=== PATIENT | male | born 1955 | race Caucasian/White ===

== ENCOUNTER → 2017-03-19 | Outpatient (CLI) | payer BC | LOC: COL.RAD 14:38 | DX: Q28.3 Other malformations of cerebral vessels (principal); J32.0 Chronic maxillary sinusitis; J32.2 Chronic ethmoidal sinusitis; I65.21 Occlusion and stenosis of right carotid artery | CPT/HCPCS: A9585 ==

== ENCOUNTER → 2018-06-17 | Outpatient (CLI) | payer MEDICARE, BC | LOC: COL.RAD 08:59 | DX: C61 Malignant neoplasm of prostate (principal) | CPT/HCPCS: A9503 ==

== ENCOUNTER 2018-09-20 08:56 | Day surgery (SDC) | payer MEDICARE, BC ==
[2018-09-20] VITALS (12 sets, daily range): BP systolic 127–154; BP diastolic 91–107; PULSE 69–76; TEMP 97
[~2018-09-20] VITALS: Ht 185.5 cm; Wt 94.0 kg
[2018-09-20 09:41] LABS: HEMATOCRIT 43.3 % (42.0-52.0); MEAN CELL VOLUME 88 fl (80.0-100.0); MEAN CORPUSCULAR HEMOGLOBIN 28 pg (27.0-31.0); MEAN CORPUSCULAR HGB CONC 32 g/dl (33.0-37.0); MEAN PLATELET VOLUME 9.7 fl (7.4-10.4); PLATELET COUNT 274 K/mm3 (130-400); RED BLOOD COUNT 4.95 M/mm3 (4.20-5.60); REDCELL DISTRIBUTION WIDTH-CV 14.1 % (11.5-14.5)
[2018-09-20] MEDS ORDERED: PROTONIX 40MG T40 MG PO (09:45)
[2018-09-20 09:46] LABS: INR 1.3 (0.8-3.0); PROTHROMBIN TIME 14.2 SECONDS (9.7-12.8)
[2018-09-20] MEDS ORDERED: ASPIRIN 81M81 MG/TA2 PO (09:46)
[2018-09-20] MEDS ORDERED: XALATAN EYE DROPS OD (09:46)
[2018-09-20 09:52] LABS: CALCIUM 8.9 mg/dL (8.4-10.2); CREATININE, serum 1.1 mg/dL (0.66-1.25); POTASSIUM 4.5 mmol/L (3.4-5.0)
--- NOTE | 2018-09-20 11:09 | NUR ---
Pt to procedure,report to MARY Keith.
--- NOTE | 2018-09-20 11:14 | NUR ---
ALL MEDICATION GIVEN WITH VERBAL ORDER AND READBACK BY MD. SEE MERGE FOR ALL ADMIN TIMES.
[2018-09-20] MEDS ORDERED: ALDACTONE 25MG25 M1 PO (12:43)
--- NOTE | 2018-09-20 17:43 | NUR ---
Discharge instructions given to pt.Pt verbalizes understanding.INt removed,catheter tip intact.
--- NOTE | 2018-09-20 18:00 | NUR ---
[facility]
== END 2018-09-20 18:48 | disposition home or self-care (01) ==
LOC: COL.CAR 08:56
PROVIDERS: Internal Medicine Cardiovascular Disease
DX: I08.0 Rheumatic disorders of both mitral and aortic valves (principal); I27.20 Pulmonary hypertension, unspecified; I10 Essential (primary) hypertension; I77.810 Thoracic aortic ectasia; R01.1 Cardiac murmur, unspecified; Z79.82 Long term (current) use of aspirin; Z79.899 Other long term (current) drug therapy
CPT/HCPCS: J1644; J2250; J3010; J7060; Q9967

== ENCOUNTER 2018-12-07 17:32 | Emergency (ER) | payer MEDICARE, BC ==
[~2018-12-07] VITALS: Ht 185.4 cm; Wt 81.8 kg
[2018-12-07 17:41] VITALS: TEMP 98.1
[2018-12-07 19:46] VITALS: BP 117/75; PULSE 86
== END 2018-12-07 19:49 | disposition home or self-care (01) ==
LOC: COL.ER 17:32
DX: I50.9 Heart failure, unspecified (principal); Z79.82 Long term (current) use of aspirin
CPT/HCPCS: J1940; Q9967

== ENCOUNTER → 2018-12-07 | Outpatient (CLI) | payer MEDICARE, BC ==
[~2018-12-07] MED LIST: ALDACTONE 25MG25 M1 PO; ASPIRIN 81M81 MG/TA2 PO; ASPIRIN E.C. 8181 MG PO; PROTONIX 40MG T40 MG PO; XALATAN EYE DROPS OD
[2018-12-07 16:32] LABS: BASO # 0.1 (0.0-0.2); BASO % 0.5 % (0.0-2.0); EOS # 0.1 (0.0-0.7); EOS % 1.4 % (0-4.0); GRAN # 6.7 (1.4-6.5); GRAN % 69.1 % (42.2-75.2); HEMATOCRIT 37.3 % (42.0-52.0); HEMOGLOBIN 12.3 g/dl (13.5-18.0); LYMPH # 1.6 (1.2-3.4); MEAN CELL VOLUME 83 fl (80.0-100.0); MEAN CORPUSCULAR HEMOGLOBIN 27 pg (27.0-31.0); MEAN CORPUSCULAR HGB CONC 33 g/dl (33.0-37.0); MEAN PLATELET VOLUME 9.1 fl (7.4-10.4); MONO # 1.1 (0.1-0.6); MONO % 11.5 % (1.7-9.3); PLATELET COUNT 328 K/mm3 (130-400); RED BLOOD COUNT 4.51 M/mm3 (4.20-5.60); REDCELL DISTRIBUTION WIDTH-CV 14.7 % (11.5-14.5)
[2018-12-07 16:53] LABS: ALBUMIN 3.8 gm/dL (3.5-5.0); BILIRUBIN,TOTAL 0.8 mg/dL (0.0-1.0); CREATININE, serum 1.05 (0.66-1.25); POTASSIUM 3.8 mmol/L (3.4-5.0)
[2018-12-07 17:04] LABS: TROPONIN-I 0.015 ng/mL (0.000-0.035)
== END ==
LOC: COL.LAB 16:14
PROVIDERS: Family Medicine
DX: I51.7 Cardiomegaly (principal); R00.0 Tachycardia, unspecified

== ENCOUNTER 2018-12-20 07:46 | Outpatient (CLI) | payer MEDICARE, BC ==
[~2018-12-20] VITALS: Ht 185.5 cm; Wt 82.0 kg
[2018-12-20] VITALS (7 sets, daily range): BP systolic 104–114; BP diastolic 66–83; PULSE 75–77; TEMP 98.2–98.3
[2018-12-20] MEDS ORDERED: COREG 3.123.125 MG/T PO (08:49)
[2018-12-20 08:50] LABS: INR 1.2 (0.8-3.0); PROTHROMBIN TIME 13.8 SECONDS (9.7-12.8)
[2018-12-20] MEDS ORDERED: PRINIVIL5 MG PO ×2 (08:50→11:52)
[2018-12-20] MEDS ORDERED: LASIX 20MG TABL20 MG PO (08:50)
[2018-12-20 08:51] LABS: HEMATOCRIT 37.9 % (42.0-52.0); HEMOGLOBIN 12.5 g/dl (13.5-18.0); MEAN CELL VOLUME 82 fl (80.0-100.0); MEAN CORPUSCULAR HEMOGLOBIN 27 pg (27.0-31.0); MEAN CORPUSCULAR HGB CONC 33 g/dl (33.0-37.0); MEAN PLATELET VOLUME 8.9 fl (7.4-10.4); PLATELET COUNT 547 K/mm3 (130-400); RED BLOOD COUNT 4.64 M/mm3 (4.20-5.60); REDCELL DISTRIBUTION WIDTH-CV 14.6 % (11.5-14.5)
[2018-12-20 08:57] LABS: CALCIUM 9.2 mg/dL (8.4-10.2); CREATININE, serum 0.92 (0.66-1.25); POTASSIUM 4.5 mmol/L (3.4-5.0)
--- NOTE | 2018-12-20 10:00 | NUR ---
Report from Tania Lee RN: LAURA completed, pt sabina well. Pt resting well in bed.
--- NOTE | 2018-12-20 12:00 | NUR ---
Pt has ambulated, voided and sabina PO intake s n/v. PIV removed with catheter intact.
--- NOTE | 2018-12-20 12:20 | NUR ---
Pt discharged per w/c by nurse with .
== END 2018-12-20 14:49 | disposition home or self-care (01) ==
LOC: COL.RAD 07:46
PROVIDERS: Internal Medicine Cardiovascular Disease
DX: I34.0 Nonrheumatic mitral (valve) insufficiency (principal); I51.7 Cardiomegaly; Z98.890 Other specified postprocedural states
CPT/HCPCS: J2704; J7120

== ENCOUNTER → 2019-02-23 | Outpatient (CLI) | payer MEDICARE, BC ==
[~2019-02-23] MED LIST changes: +COREG 3.123.125 MG/T PO; +LASIX 20MG TABL20 MG PO; +PRINIVIL5 MG PO
[2019-02-23 12:59] LABS: BASO % 0.4 % (0.0-2.0); EOS # 0.1 (0.0-0.7); EOS % 1.4 % (0-4.0); GRAN # 5.7 (1.4-6.5); GRAN % 67.4 % (42.2-75.2); HEMOGLOBIN 12.1 g/dl (13.5-18.0); LYMPH # 1.6 (1.2-3.4); LYMPH % 18.7 % (20.0-51.0); MEAN CELL VOLUME 85 fl (80.0-100.0); MEAN CORPUSCULAR HEMOGLOBIN 27 pg (27.0-31.0); MEAN CORPUSCULAR HGB CONC 32 g/dl (33.0-37.0); MEAN PLATELET VOLUME 9.6 fl (7.4-10.4); MONO % 11.7 % (1.7-9.3); PLATELET COUNT 293 K/mm3 (130-400); RED BLOOD COUNT 4.45 M/mm3 (4.20-5.60); REDCELL DISTRIBUTION WIDTH-CV 15.3 % (11.5-14.5)
[2019-02-23 13:11] LABS: ALBUMIN 3.6 gm/dL (3.5-5.0); BILIRUBIN,TOTAL 0.8 mg/dL (0.0-1.0); CALCIUM 8.8 mg/dL (8.4-10.2); CREATININE, serum 0.96 (0.66-1.25); POTASSIUM 4.2 mmol/L (3.4-5.0); TOTAL PROTEIN 6.9 gm/dL (6.4-8.2)
== END ==
LOC: COL.LAB 12:23
PROVIDERS: Family Medicine
DX: M79.10 Myalgia, unspecified site (principal); R50.9 Fever, unspecified

== ENCOUNTER 2020-01-23 10:13 | Outpatient (CLI) | payer MEDICARE, BC ==
[~2020-01-23] VITALS: Ht 185.7 cm; Wt 89.9 kg
[2020-01-23 10:38] VITALS: BP 147/110; PULSE 64; TEMP 98.4
[2020-01-23 11:01] LABS: CALCIUM 9.2 mg/dL (8.4-10.2); CREATININE, serum 0.92 (0.66-1.25); HEMATOCRIT 42.1 % (42.0-52.0); MEAN CELL VOLUME 86 fl (80.0-100.0); MEAN CORPUSCULAR HEMOGLOBIN 29 pg (27.0-31.0); MEAN CORPUSCULAR HGB CONC 33 g/dl (33.0-37.0); MEAN PLATELET VOLUME 9.7 fl (7.4-10.4); PLATELET COUNT 276 K/mm3 (130-400); POTASSIUM 4.8 mmol/L (3.4-5.0); RED BLOOD COUNT 4.92 M/mm3 (4.20-5.60); REDCELL DISTRIBUTION WIDTH-CV 13.9 % (11.5-14.5)
[2020-01-23 11:05] LABS: PROTHROMBIN TIME 11.7 SECONDS (9.7-12.8)
[2020-01-23 11:48] VITALS: BP 129/93; PULSE 57
[2020-01-23 12:00] VITALS: BP 130/86; PULSE 55
[2020-01-23 12:15] VITALS: BP 126/90; PULSE 54
[2020-01-23 12:30] VITALS: BP 134/95; PULSE 57
--- NOTE | 2020-01-23 12:45 | NUR ---
Discharge instructions given to pt.pt verbalizes understanding.INT removed,catheter tip intact.Pt escorted out via wheelchair by this nurse.
== END 2020-01-23 13:06 | disposition home or self-care (01) ==
LOC: EUO 10:13 → COL.RAD 13:30
PROVIDERS: Internal Medicine Cardiovascular Disease
DX: I34.0 Nonrheumatic mitral (valve) insufficiency (principal)
CPT/HCPCS: J2704